=== PATIENT | female | born 1960 | race Caucasian/White ===

== ENCOUNTER → 2017-06-29 | Outpatient (CLI) | payer BC ==
--- NOTE | 2017-06-29 22:03 | WWHP ---
[facility] - HISTORY AND PHYSICAL DATE OF DICTATION: 06/29/2017 CHIEF COMPLAINT: The patient is here for her routine gynecologic exam and mammogram. HPI: This is a 57-year-old, G1, P1 with an LMP of 2009. The patient is without gynecologic complaints and denies any postmenopausal bleeding. PAST MEDICAL HISTORY: Seasonal allergies, depression and anxiety. ADHD and hypothyroidism. MEDICATIONS: Selma-D 24 hours 1 daily p.r.n., Lexapro 10 mg daily. Adderall 20 mg daily. Levothyroxine 75 mcg daily. Belviq 1 daily. ALLERGIES: No known drug allergies. PAST SURGICAL HISTORY: Voluntary termination of at age 34, benign lymph node removed from the back of the neck in the past, colonoscopy 2009. PAST TECHNOLOGY MANAGER HISTORY: She has no history of STDs and has been menopausal since 2009. SOCIAL HISTORY: She denies tobacco and drug use and has about 4 alcohol-containing drinks per year. She is . She is a clinical psychologist. FAMILY HISTORY: Father had prostate cancer, [place] and diabetes. Mother had coronary artery disease. Grandmother had uterine cancer. REVIEW OF SYSTEMS: She has lost about 38 pounds. She attributes this to a weight loss medication, Belviq which she has been taking since October 24. She denies respiratory, cardiac or GI problems. PHYSICAL EXAM: Blood pressure 123/77, height 5 feet 6 inches, weight 183 pounds. BMI 30. Temperature 98.3, pulse 80. This is a well-developed, well-nourished, white female, who is alert and oriented x3, in no acute distress. HEENT: Within normal limits. NECK: Supple without mass or thyromegaly chest. LUNGS: Clear to auscultation. HEART: Regular rate and rhythm. Breasts are without mass or discharge. Axillary exam is negative for adenopathy. Back negative for CVA tenderness. ABDOMEN: Soft, nontender, without palpable masses. Pelvic exam and external genitalia reveals mild atrophy without lesions. Cervix and vagina reveals mild atrophy without lesions. There is no evidence of prolapse. The uterus is mid position nongravid size and nontender. There are no palpable adnexal masses or tenderness. Rectovaginal exam is negative for mass or tenderness and is negative for occult blood. Extremities nontender. IMPRESSION: 57-year-old menopausal female with normal gynecologic exam. PLAN: 1. Pap smear was performed. 2. Self breast examination was discussed. 3. Screening mammogram will be done today. 4. Osteoporosis prevention was discussed. 5. She will return in 1 year. MMJALEESAL / IJN: [id number] / MTDD
--- NOTE | 2017-07-01 08:54 | MM ---
Reason for exam: screening (asymptomatic). Last mammogram was performed 1 year and 3 months ago. History: Patient is postmenopausal and is nulliparous. Physical Findings: A clinical breast exam by your physician is recommended on an annual basis and results should be correlated with mammographic findings. MG 3D Screening Mammo W/Cad Bilateral CC and MLO view(s) were taken. Prior study comparison: March 31, 2016, bilateral MG screening mammo w CAD. March 19, 2015, bilateral MG screening mammo w CAD. There are scattered fibroglandular densities. No significant changes when compared with prior studies. ASSESSMENT: Negative, BI-RAD 1 RECOMMENDATION: Routine screening mammogram of both breasts in 1 year.
== END | disposition home or self-care (01) ==
LOC: WWCWWP 13:53
PROVIDERS: ATTEND Obstetrics & Gynecology
DX: Z12.31 Encounter for screening mammogram for malignant neoplasm of breast (principal)
CPT/HCPCS: 77063; 77067

== ENCOUNTER → 2018-07-19 | Outpatient (CLI) | payer BC ==
[2018-07-19 09:41] VITALS: BP 105/70; PULSE 85; RESP 18; TEMP 97.9; BMI 26.9
--- NOTE | 2018-07-19 10:19 | P.HPOB ---
History of Present Illness H&P Date: 07/19/18 Chief Complaint: The patient is here for her routine gynecologic exam and ma mmogram. This is a 58-year-old within LMP of 2009. The patient is without gynecologic complaints and denies any postmenopausal bleeding. Review of Systems The patient has lost 16 pounds over the last year. She had lost weight using Belviq last year. She denies respiratory, cardiac, or G.I. problems. Past Medical History Past Medical History: Thyroid Disorder Additional Past Medical History / Comment(s): Hypothyroid. Seasonal allergies. 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 History of Any Multi-Drug Resistant Organisms: None Reported Additional Past Surgical History / Comment(s): Benign lymph node removed from the back of the neck. VTP age 34. Colonoscopy 2009. Past Psychological History: Anxiety, Depression Smoking Status: Never smoker Past Alcohol Use History: Rare (2 per year.) Past Drug Use History: None Reported Additional History: She is and is not seen anybody at this time. She i s a clinical psychologist. - Past Family History Father Family Medical History: Cancer, Diabetes Mellitus, Myocardial Infarction ([place]) Additional Family Medical History / Comment(s): Prostate cancer. Mother Family Medical History: Coronary Artery Disease (CAD) Additional Family Medical History / Comment(s): Grandmother had uterine cancer. Medications and Allergies Home Medications Medication Instructions Recorded Confirmed Type Levothyroxine Sodium [Synthroid] 50 mcg PO DAILY 05/21/15 07/19/18 History Calcium Carbonate [Calcium] 600 mg PO 07/19/18 History Cholecalciferol [Vitamin D3] 1,000 unit PO DAILY 07/19/18 07/19/18 History Dextroamphetamine/Amphetamine 20 mg PO QAM 07/19/18 07/19/18 History [Adderall Xr] Fexofenadine/Pseudoephedrine 1 each PO BID 07/19/18 07/19/18 History [Selma-D 12 Hour Tablet] Lorcaserin HCl [Belviq] 10 mg PO DAILY 07/19/18 07/19/18 History [place]-3 Fatty Acids/Fish Oil 07/19/18 History [[place]-3 Fish Oil 1,200 mg Sfgl] Allergies Allergy/AdvReac Type Severity Reaction Status Date / Time No Known Allergies Allergy Verified 07/19/18 09:45 Exam Vital Signs Temp Pulse Resp BP Pulse Ox 07/19/18 09:36 97.9 F 85 18 105/70 99 Intake and Output 07/18/18 07/19/18 07/19/18 22:59 06:59 14:59 Other: Weight 75.75 kg Height 5'6", weight 167 pounds, BMI 27.0. This is a well-developed well-nourished white female who is alert and oriented times 3 in no acute distress. HEENT: Within normal limits. NECK: Supple without mass or thyromegaly. CHEST AND LUNGS: Clear to auscultation. HEART: Regular rate and rhythm. BREASTS: Are without mass or discharge. AXILLARY EXAM: Negative for adenopathy. BACK: Negative for CVA tenderness. ABDOMEN: Soft, nontender, without palpable masses. PELVIC EXAM: Normal external genitalia with mild atrophy. Cervix and vagina appear normal with mild atrophy. There is no unusual discharge. There is no evidence of prolapse. The uterus is midposition, nongravid size and nontender. There are no palpable adnexal masses or tenderness. RECTAL EXAM: rectovaginal exam is negative for mass or tenderness and is negative for occult blood. EXTREMITIES: Nontender. IMPRESSION: 1. 58-year-old menopausal female with normal gynecologic exam. PLAN: 1. Pap smear was deferred since she had a normal one on 06/29/2017. 2. Self breast awareness was discussed with the patient. 3. Screening mammogram will be done today. 4. Osteoporosis prevention was discussed. I have stressed the importance of adequate calcium, vitamin D and regular exercise. Recommended amounts of calcium and vitamin D were also discussed. We will plan on repeating bone density testing next year. 5. She was advised to return in one year for her annual well woman exam.
--- NOTE | 2018-07-20 10:36 | MM ---
Reason for exam: screening (asymptomatic). Last mammogram was performed 1 year and 1 month ago. History: Patient is postmenopausal and is nulliparous. Physical Findings: A clinical breast exam by your physician is recommended on an annual basis and results should be correlated with mammographic findings. MG 3D Screening Mammo W/Cad Bilateral CC and MLO view(s) were taken. XCCL view(s) were taken of the left breast. Prior study comparison: June 29, 2017, bilateral MG 3d screening mammo w/cad. March 31, 2016, bilateral MG screening mammo w CAD. There are scattered fibroglandular densities. There are benign appearing round calcifications bilaterally. There is no discrete abnormality. ASSESSMENT: Benign, BI-RAD 2 RECOMMENDATION: Routine screening mammogram of both breasts in 1 year.
== END ==
LOC: WWCWWP 09:15
PROVIDERS: ATTEND Obstetrics & Gynecology
DX: Z12.31 Encounter for screening mammogram for malignant neoplasm of breast (principal)
CPT/HCPCS: 77063; 77067

== ENCOUNTER → 2018-08-12 | Outpatient (CLI) | payer BC ==
[2018-08-15 23:01] LABS: Scallop IgE <0.10 kU/L
[2018-08-15 23:03] LABS: Clam IgE <0.10 kU/L; Walnut IgE (Food) <0.10 kU/L
[2018-08-15 23:07] LABS: Peanut IgE <0.10 kU/L; Shrimp IgE <0.10 kU/L; Soybean IgE <0.10 kU/L
[2018-08-16 01:06] LABS: Egg White IgE <0.10 kU/L
[2018-08-16 01:07] LABS: Codfish IgE <0.10 kU/L
== END | disposition home or self-care (01) ==
LOC: LABWHC1 09:21
PROVIDERS: ATTEND Family Medicine
DX: R09.81 Nasal congestion (principal)
CPT/HCPCS: 36415; 82785; 86003

== ENCOUNTER → 2018-11-07 | Outpatient (CLI) | payer BC ==
[2018-11-07 16:20] LABS: LDL Cholesterol,Calculated 146.8 mg/dL (0.0-131.0); VLDL Calculation 11.2 mg/dL (5.00-40.00)
== END | disposition home or self-care (01) ==
LOC: LABWHC1 10:30
PROVIDERS: ATTEND Family Medicine
DX: Z00.00 Encounter for general adult medical examination without abnormal findings (principal); Z13.9 Encounter for screening, unspecified
CPT/HCPCS: 36415; 80061; 82947; 86803

== ENCOUNTER → 2019-01-18 | Outpatient (CLI) | payer BC ==
[2019-01-18 11:28] LABS: T4, Free (Free Thyroxine) 1.1 ng/dL (0.80-1.80)
== END | disposition home or self-care (01) ==
LOC: LABWHC1 07:23
PROVIDERS: ATTEND Family Medicine
DX: E03.8 Other specified hypothyroidism (principal)
CPT/HCPCS: 36415; 84439; 84443

== ENCOUNTER 2020-01-31 08:46 | Day surgery (SDC) | payer BC ==
[2020-01-30 08:54] VITALS: BMI 29.0
--- NOTE | 2020-01-31 06:38 | P.GSHP ---
History of Present Illness H&P Date: 01/31/20 CHIEF COMPLAINT: Colon screen HISTORY OF PRESENT ILLNESS: The patient is a 59-year-old female who presents for colon screen. Lower endoscopy was offered for further evaluation and management. PAST MEDICAL HISTORY: Please see list. PAST SURGICAL HISTORY: Please see list. MEDICATIONS: Please see list. ALLERGIES: Please see list. SOCIAL HISTORY: No illicit drug use FAMILY HISTORY: No reports of Crohn disease or ulcerative colitis. REVIEW OF ORGAN SYSTEMS: CONSTITUTIONAL: No reports of fevers or chills. PHYSICAL EXAM: VITAL SIGNS: Stable GENERAL: Well-developed pleasant in no acute distress. HEENT: No scleral icterus. Extraocular movements grossly intact. Moist buccal mucosa. NECK: Supple without lymphadenopathy. CHEST: Unlabored respirations. Equal bilateral excursions. CARDIOVASCULAR: Regular rate and rhythm. Distal 2+ pulses. ABDOMEN: Soft, nontender, nondistended. MUSCULOSKELETAL: No clubbing, cyanosis, or edema. ASSESSMENT: 1. Colon screen. PLAN: 1. Recommend proceeding with a lower endoscopy Past Medical History Past Medical History: Hyperlipidemia, Thyroid Disorder Additional Past Medical History / Comment(s): Hypothyroid. Seasonal allergies. History of Any Multi-Drug Resistant Organisms: None Reported Additional Past Surgical History / Comment(s): Benign lymph node removed from the back of the neck. Colonoscopy 2009. VTP (MEDICAL TERMINATION OF AGE 34) BILAT CATARACTS REMOVED WITH LENS IMPLANTS Past Anesthesia/Blood Transfusion Reactions: No Reported Reaction Smoking Status: Never smoker - Past Family History Father Family Medical History: Cancer, Diabetes Mellitus, Myocardial Infarction ([place]) Additional Family Medical History / Comment(s): Prostate cancer. Mother Family Medical History: Coronary Artery Disease (CAD) Additional Family Medical History / Comment(s): Grandmother had uterine cancer. Medications and Allergies Home Medications Medication Instructions Recorded Confirmed Type Dextroamphetamine/Amphetamine 20 mg PO QAM 07/19/18 01/30/20 History [Adderall Xr] Fexofenadine/Pseudoephedrine 1 each PO BID 07/19/18 01/30/20 History [Selma-D 12 Hour Tablet] Fluticasone Nasal [place] [Flonase 1 spray EA NOSTRIL DAILY 01/30/20 01/30/20 History Nasal [place]] Invigor 8 1 tab PO DAILY 01/30/20 History Levothyroxine Sodium [Synthroid] 75 mcg PO DAILY 01/30/20 01/30/20 History Simvastatin [Zocor] 20 mg PO HS 01/30/20 01/30/20 History Allergies Allergy/AdvReac Type Severity Reaction Status Date / Time No Known Allergies Allergy Verified 01/30/20 08:37
[~2020-01-31 08:46] MED LIST: LACTATED RINGERS 1,000 ML IV SCH; MIDAZOLAM 2 MG/2 ML VIAL IV PRN; ONDANSETRON 4 MG/2 ML VIAL IVP PRN; fentaNYL (PF) 50 MCG/ML 2 ML AMP IV PRN; fentaNYL (PF) 50 MCG/ML 2 ML AMP IVP PRN
[2020-01-31 09:18] VITALS: TEMP 97.7
[2020-01-31] MEDS ORDERED: LIDOCAINE 1% (10MG/ML) FOR IV START INTRADERMA ONE (09:39)
[2020-01-31] MEDS ORDERED: LIDOCAINE 1% INJ 10MG/ML (20 ML MDV) ONE (10:05)
[2020-01-31] MEDS ORDERED: PROPOFOL 10 MG/ML 20 ML VIAL IV ONE (10:05)
--- NOTE | 2020-01-31 10:48 | P.PCN ---
Date of Procedure: 01/31/20 Description of Procedure: PREOPERATIVE DIAGNOSIS: Family history colon cancer Colonoscopy screening POSTOPERATIVE DIAGNOSIS: Family history colon cancer Colonoscopy screening OPERATION: Colonoscopy to the cecum, ileocecal valve and appendiceal orifice SURGEON: Lakeshia Bunch MD. ANESTHESIA: MAC. INDICATIONS: The patient is a 59-year-old female who presents for colonoscopy screening and family history of colon cancer. Benefits and risks were described and informed consent was obtained. DESCRIPTION OF PROCEDURE: The patient had undergone Gatorade, MiraLAX and Dulcolax prep. He had been brought into the operating room and laid in the left lateral decubitus position. After adequate intravenous sedation, the rectum was examined with 2% lidocaine jelly. No external hemorrhoids were encountered. The rectal tone was within normal limits. A nevus is found along the anoderm. No lesions were palpated in the rectal vault. An Olympus colonoscope was advanced until the cecum, ileocecal valve and appendiceal orifice were clearly viewed. The prep was fair. No scattered diverticulosis was encountered. No colonic polyps were found. Retroflexion of the scope demonstrated grade 1 internal hemorrhoids without active bleeding or inflammation. The colon was desufflated. The patient had tolerated the procedure well. Withdrawal time was over 6 minutes. FINDINGS: Aronchick preparation quality scale 3(1-5) Internal hemorrhoids, grade 1 No external prolapsed hemorrhoids. No arteriovenous malformations. No adenomatous polyps. No focal colitis. No sigmoid diverticulosis Nevus along the anoderm Mucosal defect 45 cm from the anal verge with bleeding RECOMMENDATIONS: Lower endoscopy in 5 years2024 Follow-up in the office regarding nevus along anoderm Plan - Discharge Summary Discharge Rx Participant: No New Discharge Prescriptions: Continue Fexofenadine/Pseudoephedrine [Selma-D 12 Hour Tablet] 1 each PO BID Dextroamphetamine/Amphetamine [Adderall Xr] 20 mg PO QAM Fluticasone Nasal [place] [Flonase Nasal [place]] 1 spray EA NOSTRIL DAILY Simvastatin [Zocor] 20 mg PO HS Levothyroxine Sodium [Synthroid] 75 mcg PO DAILY Invigor 8 1 tab PO DAILY Discharge Medication List Dextroamphetamine/Amphetamine [Adderall Xr] 20 mg PO QAM 07/19/18 [History] Fexofenadine/Pseudoephedrine [Selma-D 12 Hour Tablet] 1 each PO BID 07/19/18 [History] Fluticasone Nasal [place] [Flonase Nasal [place]] 1 spray EA NOSTRIL DAILY 01/30/20 [History] Invigor 8 1 tab PO DAILY 01/30/20 [History] Levothyroxine Sodium [Synthroid] 75 mcg PO DAILY 01/30/20 [History] Simvastatin [Zocor] 20 mg PO HS 01/30/20 [History] Follow up Appointment(s)/Referral(s): Lakeshia Bunch MD [STAFF PHYSICIAN] - 02/06/20 Patient Instructions/Handouts: *[facility] - (Anesthesia) Endoscopy Discharge Instructions, Colonoscopy (DC) Activity/Diet/Wound Care/Special Instructions: Repeat colonoscopy 5 years, 2024 Discharge Disposition: HOME SELF-CARE
[2020-01-31 11:15] VITALS: BP 116/67; PULSE 70; RESP 20
== END 2020-01-31 11:36 | disposition home or self-care (01) ==
LOC: ORWHC2ENDO 08:46
PROVIDERS: ATTEND Surgery Plastic and Reconstructive Surgery
DX: Z12.11 Encounter for screening for malignant neoplasm of colon (principal); K64.0 First degree hemorrhoids; D22.5 Melanocytic nevi of trunk; K63.9 Disease of intestine, unspecified; Z80.0 Family history of malignant neoplasm of digestive organs; E78.5 Hyperlipidemia, unspecified; E03.9 Hypothyroidism, unspecified; J30.2 Other seasonal allergic rhinitis; Z87.59 Personal history of other complications of pregnancy, childbirth and the puerperium; F98.8 Other specified behavioral and emotional disorders with onset usually occurring in childhood and adolescence; Z98.890 Other specified postprocedural states; Z98.41 Cataract extraction status, right eye; Z98.42 Cataract extraction status, left eye; Z96.1 Presence of intraocular lens; Z79.899 Other long term (current) drug therapy; Z79.890 Hormone replacement therapy; Z80.42 Family history of malignant neoplasm of prostate; Z83.3 Family history of diabetes mellitus; Z82.49 Family history of ischemic heart disease and other diseases of the circulatory system; Z80.49 Family history of malignant neoplasm of other genital organs
CPT/HCPCS: J2001; J2704; G0105; 45378

== ENCOUNTER → 2020-12-10 | Outpatient (CLI) | payer BC ==
[2020-12-10 16:26] VITALS: BP 114/75; PULSE 64; RESP 18; TEMP 98.8
--- NOTE | 2020-12-10 17:30 | P.HPOB ---
History of Present Illness H&P Date: 12/10/20 Chief Complaint: The patient is here for her routine gynecologic exam and ma mmogram. This is a 60-year-old with an LMP of 2009. The patient is without gynecologic complaints and denies any postmenopausal bleeding. At the time of her screening colonoscopy, a perianal lesion was noted and she was sent to a colorectal surgeon who removed the lesion because there was some suspicion of a melanoma. This was not a melanoma, but there were some mildly atypical melano cytes with a negative margin. Review of Systems The patient has gained 12 pounds over the last year. She denies respiratory, cardiac, or G.I. problems. Past Medical History Past Medical History: Hyperlipidemia, Thyroid Disorder Additional Past Medical History / Comment(s): Hypothyroid. Seasonal allergies. 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 History of Any Multi-Drug Resistant Organisms: None Reported Additional Past Surgical History / Comment(s): Benign lymph node removed from the back of the neck. Colonoscopy 2019. VTP (MEDICAL TERMINATION OF AGE 34) BILAT CATARACTS REMOVED WITH LENS IMPLANTS. 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 She is a clinical psychologist. - Past Family History Father Family Medical History: Cancer, Diabetes Mellitus, Myocardial Infarction ([place]) Additional Family Medical History / Comment(s): Prostate cancer. Mother Family Medical History: Coronary Artery Disease (CAD) Additional Family Medical History / Comment(s): Grandmother had uterine cancer. Medications and Allergies Home Medications Medication Instructions Recorded Confirmed Type Dextroamphetamine/Amphetamine 20 mg PO QAM 07/19/18 12/10/20 History [Adderall Xr] Fexofenadine/Pseudoephedrine 1 each PO BID PRN 07/19/18 12/10/20 History [Selma-D 12 Hour Tablet] Levothyroxine Sodium [Synthroid] 88 mcg PO DAILY 01/30/20 12/10/20 History Simvastatin [Zocor] 20 mg PO HS 01/30/20 12/10/20 History Calcium Carbonate/Vitamin D3 1 each PO DAILY 12/10/20 12/10/20 History [Calcium 500 mg-Vit D3 5 mcg (200 Unit)] Multivitamin [Multivitamins Adult 1 each PO DAILY 12/10/20 12/10/20 History Gummies] [place]-3 Fatty Acids [[place]-3] 1,000 mg PO DAILY 12/10/20 12/10/20 History Allergies Allergy/AdvReac Type Severity Reaction Status Date / Time No Known Allergies Allergy Verified 12/10/20 16:21 Exam Vital Signs Temp Pulse Resp BP Pulse Ox 12/10/20 16:21 98.8 F 64 18 114/75 98 Intake and Output 12/10/20 12/10/20 12/10/20 06:59 14:59 22:59 Other: Weight 81.193 kg Height 5 feet 4 inches, weight 179 pounds, BMI 30.7. This is a well-developed well-nourished white female who is alert and oriented times 3 in no acute distress. HEENT: Within normal limits. NECK: Supple without mass or thyromegaly. CHEST AND LUNGS: Clear to auscultation. HEART: Regular rate and rhythm. BREASTS: Are without mass or discharge. AXILLARY EXAM: Negative for adenopathy. BACK: Negative for CVA tenderness. ABDOMEN: Soft, nontender, without palpable masses. PELVIC EXAM: Normal external genitalia with mild atrophy. Cervix and vagina appear normal with mild atrophy. The cervix appears nulliparous without lesions. There is no unusual discharge. There is no evidence of prolapse. The uterus is midposition, nongravid size and nontender. There are no palpable adnexal masses or tenderness. RECTAL EXAM: The anus and perianal regions are inspected and are normal- appearing without lesions. Rectovaginal exam is negative for mass or tenderness and is negative for occult blood. EXTREMITIES: Nontender. IMPRESSION: 1. 60-year-old menopausal female with normal gynecologic exam. 2. Recent excision of a perianal nevus which showed mildly atypical melanocytes. The perianal region is unremarkable on exam today. PLAN: 1. Pap smear cotest was performed. 2. Self breast awareness was discussed with the patient. 3. Screening mammogram will be done today. 4. Osteoporosis prevention was discussed. I have stressed the importance of adequate calcium, vitamin D and regular exercise. Recommended amounts of calcium and vitamin D were also discussed. Bone density testing was recommended and the order slip was given to the patient for this. 5. She was advised to return in one year for her annual well woman exam.
--- NOTE | 2020-12-16 12:01 | MM ---
Reason for exam: screening (asymptomatic). Last mammogram was performed 2 years and 5 months ago. History: Patient is postmenopausal and is nulliparous. Took hormonal contraceptives for 15 years. Physical Findings: A clinical breast exam by your physician is recommended on an annual basis and results should be correlated with mammographic findings. MG 3D Screening Mammo W/Cad Bilateral CC and MLO view(s) were taken. Prior study comparison: July 19, 2018, bilateral MG 3d screening mammo w/cad. June 29, 2017, bilateral MG 3d screening mammo w/cad. There are scattered fibroglandular densities. There is chronic nodularity in the right anterior CC view. No significant changes when compared with prior studies. ASSESSMENT: Negative, BI-RAD 1 RECOMMENDATION: Routine screening mammogram of both breasts in 1 year.
== END | disposition home or self-care (01) ==
LOC: WWCWWP 15:53
PROVIDERS: ATTEND Obstetrics & Gynecology
DX: Z12.31 Encounter for screening mammogram for malignant neoplasm of breast (principal); Z78.0 Asymptomatic menopausal state
CPT/HCPCS: 77063; 77067

== ENCOUNTER → 2022-10-19 | Outpatient (CLI) | payer BC ==
--- NOTE | 2022-10-19 10:40 | XR ---
EXAMINATION TYPE: XR chest 2V DATE OF EXAM: 10/19/2022 COMPARISON: NONE HISTORY: Shortness of breath TECHNIQUE: Frontal and lateral views of the chest are obtained. FINDINGS: Scattered senescent parenchymal changes noted. Hyperinflation compatible with COPD. No evidence for infiltrate. No evidence for atelectasis. Heart size is stable. Mediastinal structures are stable and grossly unremarkable. No evidence for hilar prominence. Degenerative changes dorsal spine. IMPRESSION: 1. No evidence for acute pulmonary disease.
== END | disposition home or self-care (01) ==
LOC: RADXRMAIN 10:12
PROVIDERS: ATTEND Family Medicine
DX: R06.02 Shortness of breath (principal); R61 Generalized hyperhidrosis
CPT/HCPCS: 71046

== ENCOUNTER → 2022-10-30 | Outpatient (CLI) | payer BC ==
--- NOTE | 2022-11-01 13:01 | MR ---
EXAMINATION TYPE: MR pelvis wo con DATE OF EXAM: 10/30/2022 COMPARISON: Report for prior CT on 02/21/2020. CLINICAL INDICATION:Female, 62 years old with history of M89.9 DISORDER OF BONE UNSPECIFIED; Right si de hip pain, abnormal CT TECHNIQUE: Triplane multisequence imaging was performed of the pelvis. IV Contrast: None FINDINGS: Reproductive: Uterus is appears atrophic. Evaluation limited given MSK protocol. Endometrium appears within normal limits for thickness. The ovaries are not definitively visualized. The vagina is within normal limits. Bladder: Nondistended and grossly unremarkable. Bowel: Unremarkable as visualized. Peritoneum: A small amount of free fluid in the pelvis. Lymph nodes: No evidence of adenopathy. Vasculature: Unremarkable. Musculoskeletal: Mild bony edema within the right greater trochanter series 601 image 12. Increased s ignal at the level of the gluteus medius insertion on the greater tuberosities bilaterally. This is m ore pronounced on the right. No abnormal bony edema within the liver near the sacroiliac joints or th e subchondral spaces of the hips bilaterally. There is mild joint space narrowing present bilaterally . No definitive correlate for sclerosis reported on prior CT report. No imaging was provided. Minimal sacroiliac joint osteophyte formation. Abdominal wall/soft tissues: Unremarkable. IMPRESSION: 1. Areas of prior sclerosis are not well correlated with without prior imaging. Consider short-term follow-up CT imaging in comparison with prior CT imaging for stability. 2. 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 3. Mild bilateral sacroiliac joint degeneration and mild bilateral hip osteoarthrosis.
== END | disposition home or self-care (01) ==
LOC: RADMRIMAIN 07:49
PROVIDERS: ATTEND Family Medicine
DX: M16.0 Bilateral primary osteoarthritis of hip (principal)
CPT/HCPCS: 72195